=== PATIENT | female | born 1995 | race Two or more races ===

== ENCOUNTER 2017-01-05 01:06 | Emergency (ER) | payer MEDICAID, OTHER ==
[~2017-01-05] VITALS: Ht 162.6 cm; Wt 48.5 kg
[~2017-01-05 01:06] MED LIST: ALBU8.5H8 IH
--- NOTE | 2017-01-05 01:27 | NUR ---
DR. MCCALL IN ROOM FOR HINA.
--- NOTE | 2017-01-05 01:35 | NUR ---
RT AT BEDSIDE FOR HHN TREATMENT.
--- NOTE | 2017-01-05 02:30 | NUR ---
Patient discharged to home in stable conditon. Written and verbal after care instructions given. Patient verbalizes understanding of instructions. PATIENT LEFT WITH STABLE GAIT.
[2017-01-05 02:31] VITALS: BP 108/61
== END 2017-01-05 02:31 | disposition home or self-care (01) ==
LOC: ER 01:16
DX: J45.909 Unspecified asthma, uncomplicated (principal); Z88.0 Allergy status to penicillin
CPT/HCPCS: A4663; J3535; J3590

== ENCOUNTER 2017-09-04 22:33 | Emergency (ER) | payer MEDICAID, OTHER ==
[~2017-09-04] VITALS: Ht 162.6 cm; Wt 50.8 kg
--- NOTE | 2017-09-04 23:13 | NUR ---
Patient discharged to home in stable conditon. Written and verbal after care instructions given. Patient verbalizes understanding of instructions. Patient ambulatd out of ER in steady gait. all belongings with pt. VSS. No acute distress noted.
[2017-09-04 23:16] VITALS: BP 110/74
== END 2017-09-04 23:16 | disposition home or self-care (01) ==
LOC: ER 22:35
DX: S61.211D Laceration without foreign body of left index finger without damage to nail, subsequent encounter (principal); J45.909 Unspecified asthma, uncomplicated; Z88.0 Allergy status to penicillin; Z88.2 Allergy status to sulfonamides; X58.XXXD Exposure to other specified factors, subsequent encounter
CPT/HCPCS: 99281; A4663

== ENCOUNTER 2018-04-11 11:58 | Emergency (ER) | payer SELFPAY ==
[~2018-04-11] VITALS: Ht 160 cm; Wt 50.8 kg
== END 2018-04-11 12:16 | disposition home or self-care (01) ==
LOC: ER 12:01
DX: R06.02 Shortness of breath (principal); R06.2 Wheezing; Z76.0 Encounter for issue of repeat prescription; J45.909 Unspecified asthma, uncomplicated; Z88.0 Allergy status to penicillin; Z88.2 Allergy status to sulfonamides; Z79.899 Other long term (current) drug therapy
CPT/HCPCS: A4663